=== PATIENT | male | born 1990 | race Two or more races ===

== ENCOUNTER 2019-03-07 12:19 | Emergency (ER) | payer MEDICAID ==
[~2019-03-07] VITALS: Ht 190.5 cm; Wt 110.0 kg
[~2019-03-07 12:19] MED LIST: LIDOcaine 1% W/epiNEPHrine 1:100,000 20ml vial ONE
[2019-03-07] MEDS ORDERED: cephalexin 500mg capsule PO ONE (13:50)
[2019-03-07] MEDS ORDERED: sulfamethoxazole/trimethoprim DS (800/160mg) tablet PO ONE (13:50)
[2019-03-07] MEDS ORDERED: ondansetron 4mg rapidly disintigrating tab PO ONE (13:50)
[2019-03-07 15:00] VITALS: BP 119/59
[2019-03-07] MEDS ORDERED: SULF1TAB49 PO (15:07)
[2019-03-07] MEDS ORDERED: CEPH250T PO (15:07)
== END 2019-03-07 15:40 | disposition home or self-care (01) ==
LOC: ER 12:20
DX: L02.416 Cutaneous abscess of left lower limb (principal); L02.415 Cutaneous abscess of right lower limb; F11.90 Opioid use, unspecified, uncomplicated
CPT/HCPCS: 10061; 99284

== ENCOUNTER 2019-03-11 09:55 | Emergency (ER) | payer MEDICAID ==
[~2019-03-11] VITALS: Ht 190.5 cm; Wt 97.7 kg
[~2019-03-11 09:55] MED LIST changes: +CEPH250T PO; -LIDOcaine 1% W/epiNEPHrine 1:100,000 20ml vial ONE; +SULF1TAB49 PO
[2019-03-11 10:07] VITALS: BP 139/90
[2019-03-11] MEDS ORDERED: IBUP-1984 PO (10:32)
[2019-03-11] MEDS ORDERED: ibuprofen tablet 400 MG TABLET PO ONE (10:35)
== END 2019-03-11 10:50 | disposition home or self-care (01) ==
LOC: ER 09:56
DX: L02.416 Cutaneous abscess of left lower limb (principal); L02.415 Cutaneous abscess of right lower limb; F11.90 Opioid use, unspecified, uncomplicated; Z59.0 Homelessness; Z56.0 Unemployment, unspecified; Z86.14 Personal history of Methicillin resistant Staphylococcus aureus infection
CPT/HCPCS: 99282; 99283